=== PATIENT | male | born 1960 | race Caucasian/White ===

== ENCOUNTER → 2025-07-11 18:24 | Outpatient (REF) | payer MEDICARE, SELFPAY | LOC: PAVMRI 18:24 | PROVIDERS: Physical Medicine & Rehabilitation; ATTENDING PHYSICIAN Internal Medicine; FAMILY PHYSICIAN Family Medicine | DX: M54.2 Cervicalgia (principal); M54.12 Radiculopathy, cervical region | CPT/HCPCS: 72141 ==

== ENCOUNTER 2025-07-31 13:06 | Emergency (ER) | payer MEDICARE, SELFPAY ==
[2025-07-31 13:09] VITALS: BP 168/105
--- NOTE | 2025-07-31 13:51 | ED.GENMED ---
History of Present Illness
<Santos Castillo PA-C - Last Filed: 07/31/25 13:57>
General
Chief Complaint: Abdominal Pain
Source: patient
Time Seen by Provider: 07/31/25 13:43
History of Present Illness
History of Present Illness:
65-year-old male with past medical history of bladder cancer (currently not undergoing any treatment for this), previous PE (not currently anticoagulated) presenting to the emergency department for evaluation of a sudden onset of right flank/lower
abdominal pain that began at 6 AM with intense severity, has waxed and waned since then but presently now a 9 out of 10 accompanied with some mild nausea. At 6 AM patient did take 2 ibuprofen a 2-1/2 mg of hydrocodone with slight relief but
medicine seems to be wearing off. He denies any fevers, urinary symptoms, bowel changes or any other concerns.
<Mila Smith NP - Last Filed: 07/31/25 20:14>
History of Present Illness
History of Present Illness:
65-year-old male with past medical history of bladder cancer (currently not undergoing any treatment for this), previous PE (not currently anticoagulated) presenting to the emergency department for evaluation of a sudden onset of right flank/lower
abdominal pain that began at 6 AM with intense severity, has waxed and waned since then but presently now a 9 out of 10 accompanied with some mild nausea. At 6 AM patient did take 2 ibuprofen a 2-1/2 mg of hydrocodone with slight relief but
medicine seems to be wearing off. He denies any fevers, urinary symptoms, bowel changes or any other concerns.
CT abdomen pelvis completed. Results reviewed. Mild right hydronephrosis and moderate hydroureter. No obstructing mass or stone identified. A recently passed stone is a consideration. Discussed findings with patient and spouse. Patient is much
more comfortable. He has not required any further pain medication. Plan will be to discharge him home tonight. He will continue to hydrate. He will follow-up with his urologist at [facility] in the a.m. He was given instructions on signs and symptoms
to return to the emergency department and he is agreeable with this plan
Past History
<Santos Castillo PA-C - Last Filed: 07/31/25 13:57>
Past History
ED Past Medical History: Cancer and Other (PE)
ED Past Surgical History: Orthopedic, Urological and Other
Social History
Tobacco: Non-smoker
Alcohol: None
Drug: None
Personal:
Living: with family
Review of Systems
<Santos Castillo PA-C - Last Filed: 07/31/25 13:57>
Review of Systems
All Other Systems: ROS reviewed and negative except as documented in HPI and ROS
Phy Exam
<Santos Castillo PA-C - Last Filed: 07/31/25 13:57>
Physical Exam
Physical Exam:
GENERAL: Alert , appears uncomfortable, pacing in room
HEAD: Normocephalic atraumatic
EYE: conjunctiva clear
NECK: Supple
ENT: o/p clr, mmm.
CARDIAC: Regular rate and rhythm
LUNGS: Clear breath sounds bilaterally, no acute respiratory distress, no wheezes/rales/rhonchi
ABDOMEN: soft, mild right CVAT, no rashes
NEUROLOGICAL: Alert and oriented
SKIN: Warm and dry, skin intact.
MUSCULOSKELETAL: well perfused.
PSYCH: Normal and appropriate interaction.
Scores
<MATTEO Dotson Last Filed: 07/31/25 13:57>
Heart Failure Risk
Heart Failure Risk Score: Not Applicable
Heart Score for Chest Pain Patients
STEMI patient?: Not applicable
Withdrawal Assessment of Alcohol
Withdrawal Assessment Completed?: Not applicable
Course
<Santos Castillo PA-C - Last Filed: 07/31/25 13:57>
Orders/Labs/Results
Orders:
Orders
07/31/25 13:38
Complete Blood Count/With Diff Urgent
Comprehensive Metabolic Panel Urgent
07/31/25 13:48
CT Abd/pel Without Iv Or Oral Urgent
Comment:
Reason For Exam: sudden onset right flank pain
Ketorolac [Toradol] 15 mg IV NOW STA
Ondansetron Injectable [Zofran] 4 mg IV NOW STA
07/31/25 13:57
0.9% Sodium Chloride 1000 ml [Nss] 1,000 ml IV BOLUS
07/31/25 14:36
HYDROmorphone [Dilaudid] 0.5 mg IV NOW STA
Ketorolac [Toradol] 15 mg IV NOW STA
07/31/25 16:27
Urinalysis Reflex To Culture Urgent
Date Specimen was Collected: 07/31/25
Time Specimen was Collected: 13:37
Urine Microscopic Reflex Cult Urgent
Urine Culture Urgent
GWEN Source: U
Specimen Description:
Date Specimen was Collected: 07/31/25
Time Specimen was Collected: 13:37
07/31/25 16:28
HYDROmorphone [Dilaudid] 0.5 mg IV NOW STA
Abnormal Lab Results
07/31/25 07/31/25
13:38 16:27
WBC 12.8 H 10^3/uL
(4.8-10.8)
Abs Immat Gran (auto) 0.1 H 10^3/uL
(0-0.05)
Absolute Neuts (auto) 9.2 H 10^3/uL
(1.4-6.5)
Absolute Monos (auto) 0.7 H 10^3/uL
(0.1-0.6)
Immature Gran % 0.7 H %
(0-0.5)
Lymphocytes % 19.8 L %
(20.5-51.1)
BUN 25 H mg/dl
(9-20)
Glucose 145 H mg/dl
(70-99)
Urine Ketones 3+ A
(Negative)
Ur Occult Blood Reflex 3+ A
(Negative)
Leukocyte Esterase Rfl 1+ A
(Negative)
Urine RBC 11-15 A /HPF
(0-2)
Urine WBC (Reflex) 16-20 A /HPF
(0-5)
Urine Bacteria (Reflex) Many A
(Negative)
Urine Albumin (Reflex) 3+ A
(Neg - Trace)
07/31/25 13:38
07/31/25 13:38
Vital Signs
Initial and Last Documented VS:
Initial Vital Signs
Temp Pulse Resp BP Pulse Ox
97.9 F 87 16 168/105 95
07/31/25 13:09 07/31/25 13:09 07/31/25 13:09 07/31/25 13:09 07/31/25 13:09
Last Documented Vital Signs
Temp Pulse Resp BP Pulse Ox
99.2 F 89 16 162/87 96
07/31/25 18:27 07/31/25 18:27 07/31/25 18:27 07/31/25 18:27 07/31/25 18:27
Yudylt;Mila Smith NP - Last Filed: 07/31/25 20:14>
Orders/Labs/Results
Orders:
Orders
07/31/25 13:38
Complete Blood Count/With Diff Urgent
Comprehensive Metabolic Panel Urgent
07/31/25 13:48
CT Abd/pel Without Iv Or Oral Urgent
Comment:
Reason For Exam: sudden onset right flank pain
Ketorolac [Toradol] 15 mg IV NOW STA
Ondansetron Injectable [Zofran] 4 mg IV NOW STA
07/31/25 13:57
0.9% Sodium Chloride 1000 ml [Nss] 1,000 ml IV BOLUS
07/31/25 14:36
HYDROmorphone [Dilaudid] 0.5 mg IV NOW STA
Ketorolac [Toradol] 15 mg IV NOW STA
07/31/25 16:27
Urinalysis Reflex To Culture Urgent
Date Specimen was Collected: 07/31/25
Time Specimen was Collected: 13:37
Urine Microscopic Reflex Cult Urgent
Urine Culture Urgent
GWEN Source: U
Specimen Description:
Date Specimen was Collected: 07/31/25
Time Specimen was Collected: 13:37
07/31/25 16:28
HYDROmorphone [Dilaudid] 0.5 mg IV NOW STA
Abnormal Lab Results
07/31/25 07/31/25
13:38 16:27
WBC 12.8 H 10^3/uL
(4.8-10.8)
Abs Immat Gran (auto) 0.1 H 10^3/uL
(0-0.05)
Absolute Neuts (auto) 9.2 H 10^3/uL
(1.4-6.5)
Absolute Monos (auto) 0.7 H 10^3/uL
(0.1-0.6)
Immature Gran % 0.7 H %
(0-0.5)
Lymphocytes % 19.8 L %
(20.5-51.1)
BUN 25 H mg/dl
(9-20)
Glucose 145 H mg/dl
(70-99)
Urine Ketones 3+ A
(Negative)
Ur Occult Blood Reflex 3+ A
(Negative)
Leukocyte Esterase Rfl 1+ A
(Negative)
Urine RBC 11-15 A /HPF
(0-2)
Urine WBC (Reflex) 16-20 A /HPF
(0-5)
Urine Bacteria (Reflex) Many A
(Negative)
Urine Albumin (Reflex) 3+ A
(Neg - Trace)
07/31/25 13:38
07/31/25 13:38
Vital Signs
Initial and Last Documented VS:
Initial Vital Signs
Temp Pulse Resp BP Pulse Ox
97.9 F 87 16 168/105 95
07/31/25 13:09 07/31/25 13:09 07/31/25 13:09 07/31/25 13:09 07/31/25 13:09
Last Documented Vital Signs
Temp Pulse Resp BP Pulse Ox
99.2 F 89 16 162/87 96
07/31/25 18:27 07/31/25 18:27 07/31/25 18:27 07/31/25 18:27 07/31/25 18:27
<Santos Castillo PA-C - Last Filed: 07/31/25 13:57>
MDM/Problems Addressed
Differential Diagnosis Includes:
Renal/Ureteral Colic
Cystitis
Pyelonephritis
Muscular etiology
Dissection
Renal dysfunction
Shingles
Appy
MDM/Problems Addressed:
65-year-old male presenting to the ER for evaluation of a sudden onset of right flank pain that began earlier this morning, symptoms have waxed and waned in intensity however presently causing significant discomfort. Will treat with 15 mg of
Toradol, Zofran and fluids. CT pending.
<Santos Castillo PA-C - Last Filed: 07/31/25 13:57>
*Pulse Oximetry
SaO2: 95
Oxygen Mode of Delivery: Room air
Patient hypoxic: no
<Mila Smith NP - Last Filed: 07/31/25 20:14>
*Critical Care Note
Total Time (30-74mins, 75-104mins- exclusive of procedures): Not Applicable
ED Attending Note
<Santos Castillo PA-C - Last Filed: 07/31/25 13:57>
-
Portions of this chart may have been created with voice recognition software.� Occasional wrong word or��sound alike� substitutions may have occurred due to the inherent limitations of voice recognition software.
Discharge Plan
Departure
Patient Disposition: Home (Routine Discharge)
Date of Disposition: 07/31/25
Time of Disposition: 20:10
Patient with high blood pressure during this ER visit?: No
Condition: Good
Covid-19: Not Applicable
Discharge Problem:
Acute flank pain
Instructions: Flank pain - ED (DC)
Prescriptions:
No Action
prednisone 10 MG tablet
10 mg PO .TAPER Qty: 30 0RF
Rx Instructions:
Take 40mg daily x3days, 30mg daily x3days,
20mg daily x3days, 10mg daily x3days.
hydrocodone-acetaminophen 1 TABLET tablet
1 tab PO Q4HPRN PRN (Reason: pain) Qty: 12 0RF
Referrals:
Mao Cho MD [Family Provider, Family Practice]
Activity Restrictions/Additional Instructions:
Follow-up with your urologist in the a.m. Return to the emergency department immediately for any changes in/worsening of your symptoms.
Interventions
Interventions:
*Risk Screen - Suicide Last Done: 07/31/25 13:11
*Neglect/Abuse Screening Last Done: 07/31/25 13:11
CV-Signmt-Lwiweekvkp Assessment Last Done: 07/31/25 14:50
Discharge Date and Time
Print Language: [place]
[2025-07-31 13:52] LABS: Hematocrit 47.9 % (39.0-52.0); Hemoglobin 16.0 g/dL (13.0-18.0); Mean Corp Hgb Conc. 33.4 g/dL (33.0-37.0); Mean Corpuscular Volume 86.9 fL (80.0-94.0); Nucleated Red Blood Cells % 0 % (-); Platelet Count 243 10^3/uL (130-400); Red Cell Dist. Width 13.1 % (11.5-14.5)
[2025-07-31] MEDS: ZOFRAN 4 MG IV (13:52)
[2025-07-31] MEDS: TORADOL 15 MG IV ×2 (13:52→14:40)
[2025-07-31 14:00] LABS: ALT (SGPT) 36 U/L (0-50); AST (SGOT) 32 U/L (17-59); Albumin 5.0 g/dl (3.5-5.0); Alkaline Phosphatase 58 U/L (38-126); Blood Urea Nitrogen 25 mg/dl (9-20); Calcium 9.5 mg/dl (8.4-10.2); Carbon Dioxide 26 mmol/L (22-30); Chloride 101 mmol/L (98-107); Glucose 145 mg/dl (70-99); Potassium 4.7 mmol/L (3.5-5.1); Sodium 139 mmol/L (135-145); Total Protein 8.2 g/dl (6.3-8.2); eGFR > 60.00
[2025-07-31] MEDS: NSS 1000 IV (14:02)
[2025-07-31] MEDS: DILAUDID 0.5 MG IV ×2 (14:40→16:50)
[2025-07-31 14:48] VITALS: BP 169/91; BMI 39.9
[2025-07-31 16:33] LABS: Urine Character Clear (Clear)
[2025-07-31 16:41] LABS: Urine Squamous Cell >30 /LPF (Few)
[2025-07-31 16:42] LABS: Urine White Cell 16-20 /HPF (0-5)
[2025-07-31 18:27] VITALS: BP 162/87
[2025-07-31 20:36] VITALS: BP 154/86
== END 2025-07-31 21:11 | disposition home or self-care (01) ==
LOC: EMR 13:06
PROVIDERS: EMERGENCY PHYSICIAN Emergency Medicine; FAMILY PHYSICIAN Family Medicine
DX: R10.A1 Flank pain, right side (principal); Z85.51 Personal history of malignant neoplasm of bladder; Z86.711 Personal history of pulmonary embolism
CPT/HCPCS: 99284; 96374; 96375 ×2; 96376 ×2; 96361; 74176; 80053; 81003; 81015; 85025; 87086

== ENCOUNTER → 2025-08-21 06:42 | Outpatient (REF) | payer MEDICARE, SELFPAY | LOC: MRI 06:42 | PROVIDERS: ATTENDING PHYSICIAN Physical Medicine & Rehabilitation; FAMILY PHYSICIAN Family Medicine | DX: M48.061 Spinal stenosis, lumbar region without neurogenic claudication (principal) | CPT/HCPCS: 72148 ==